=== PATIENT | female | born 1965 | race Caucasian/White ===

== ENCOUNTER → 2018-06-30 16:55 | Outpatient (CLI) | payer BC ==
[2015-08-27 07:54] VITALS: BMI 35.0
[~2018-06-30 16:55] MED LIST: ALDACTONE100 MG PO; ARMOUR THYROID120 MG PO; ATIVAN1 MG PO; DOXEPIN HCL10 MG PO; GLUCOPHAGE500 MG PO; HEMOCYTE PLUS1 CAP PO; HYDROCODONE-APA1 TAB PO; PRILOSEC20 MG PO; PROMETRIUM100 MG PO; STRATTERA80 MG PO
== END | disposition home or self-care (01) ==
LOC: D.MAMMO 13:30
DX: Z12.31 Encounter for screening mammogram for malignant neoplasm of breast (principal)

== ENCOUNTER → 2019-07-23 20:35 | Outpatient (CLI) | payer BC ==
[2015-08-27 07:54] VITALS: BMI 35.0
== END | disposition home or self-care (01) ==
LOC: D.MAMMO 13:00
PROVIDERS: ATTEND Family Medicine
DX: Z12.31 Encounter for screening mammogram for malignant neoplasm of breast (principal)